=== PATIENT | male | born 1985 | race African-American/Black ===

== ENCOUNTER 2020-10-27 15:31 | Inpatient (IN) | payer SELFPAY ==
[~2020-10-27] VITALS: Ht 188 cm; Wt 158.8 kg
[2020-10-27 15:31] VITALS: BP_SYST 129
[2020-10-27] MEDS ORDERED: fentaNYL CITRATE/PF 100 MCG/2 ML AMP IVP PRN (16:00)
[2020-10-27] MEDS ORDERED: PANTOPRAZOLE SODIUM 40 MG/VIAL (PROTONIX) IVP ONE (16:00)
[2020-10-27] MEDS ORDERED: NACL 0.9% 1,000 ML IV SCH (16:00)
[2020-10-27] MEDS ORDERED: DIPHENHYDRAMINE INJ 50 MG/ML VIAL IVP ONE (16:30)
[2020-10-27] MEDS ORDERED: PANTOPRAZOLE SODIUM 40 MG in NS 50 ML IV ONE (16:30)
[2020-10-27] MEDS ORDERED: PANTOPRAZOLE SODIUM 80 MG in NS 100 ML IV ONE (16:30)
[2020-10-27] MEDS ORDERED: IOHEXOL 350 mgI/mL, 150 ML INFUS..BTL IV ONE (16:58)
[2020-10-27 17:15] LABS: HEMATOCRIT 27.4 % (36-54); HEMOGLOBIN 8.6 g/dL (14.0-18.0); MEAN CORPUSCULAR HEMOGLOBIN 26 pg (27-31); MEAN CORPUSCULAR HGB CONC 31 % (32-36); MEAN CORPUSCULAR VOLUME 83 fL (79.0-98.0); PLATELET COUNT (AUTO) 222 K/uL (130-430); RED BLOOD CELL COUNT(AUTO) 3.32 MIL/uL (4.2-6.2); RED CELL DISTRIBUTION WIDTH 16.9 % (9.0-15.0); WHITE BLOOD COUNT (AUTO) 3.2 K/uL (4.8-10.8)
[2020-10-27 17:26] LABS: PROTHROMBIN TIME 10.1 SECS (9.5-12.5)
[2020-10-27 17:32] LABS: CALCIUM 8.6 mg/dL (8.4-11.0); CREATININE 0.89 mg/dL (0.55-1.30); POTASSIUM 3.9 mmol/L (3.5-5.1)
[2020-10-27 17:48] LABS: ALBUMIN 3.2 g/dL (3.4-4.8); TOTAL BILIRUBIN 0.5 mg/dL (0.0-1.0)
[2020-10-27] MEDS ORDERED: FOLI-43 PO (18:10)
[2020-10-27] MEDS ORDERED: HYD500 PO (18:10)
[2020-10-27] MEDS ORDERED: ASPI-1393 PO (18:10)
[2020-10-27] MEDS ORDERED: INSU100V9 SQ (18:13)
[2020-10-27] MEDS ORDERED: INSU100V SQ (18:13)
[2020-10-27] MEDS ORDERED: VANC250C17 (18:28)
[2020-10-27] MEDS ORDERED: RIVA20TA PO (18:28)
[2020-10-27] MEDS ORDERED: CLOP75TA32 PO ×2 (18:28→21:05)
[2020-10-27] MEDS ORDERED: QUET400T PO (18:28)
[2020-10-27] MEDS ORDERED: MIRT-115 PO (18:28)
[2020-10-27] MEDS ORDERED: HYDR-3927 PO (18:28)
[2020-10-27] MEDS ORDERED: HYDR2TAB4 PO (18:28)
[2020-10-27] MEDS ORDERED: HYDROmorphone 1 INJ. 1 MG/ML CARTRIDGE IVP PRN (19:45)
[2020-10-27] MEDS ORDERED: VANCOMYCIN HCL 1,000 MG in NS 250 ML IV ONE (19:45)
[2020-10-27] MEDS ORDERED: VANCOMYCIN HCL 1000 MG/VIAL IV ONE (20:13)
[2020-10-27] MEDS ORDERED: HYDROmorphone 2 MG/ML VIAL ONE (20:29)
[2020-10-27 21:03] LABS: BASOPHILS % (AUTO) 0.2 % (0.0-2.0); EOSINOPHILS # (AUTO) 0.1 K/uL (0.0-0.4); EOSINOPHILS % (AUTO) 1.3 % (0.0-4.0); HEMATOCRIT 27.1 % (36-54); HEMOGLOBIN 8.6 g/dL (14.0-18.0); LYMPHOCYTES # (AUTO) 1.1 K/uL (1.0-5.5); LYMPHOCYTES % (AUTO) 19.4 % (20.5-51.5); MEAN CORPUSCULAR HEMOGLOBIN 26 pg (27-31); MEAN CORPUSCULAR HGB CONC 32 % (32-36); MEAN CORPUSCULAR VOLUME 82 fL (79.0-98.0); MONOCYTES # (AUTO) 0.4 K/uL (0.0-1.0); MONOCYTES % (AUTO) 7.1 % (1.7-9.3); NEUTROPHILS # (AUTO) 4.1 K/uL (1.8-7.7); PLATELET COUNT (AUTO) 228 K/uL (130-430); RED BLOOD CELL COUNT(AUTO) 3.31 MIL/uL (4.2-6.2); RED CELL DISTRIBUTION WIDTH 16.7 % (9.0-15.0); RETICULOCYTE COUNT 2.5 % (0.5-1.5); WHITE BLOOD COUNT (AUTO) 5.6 K/uL (4.8-10.8)
[2020-10-27 22:00] VITALS: BP_SYST 147
[2020-10-27] MEDS: DIPHENHYDRAMINE INJ 50 MG/ML VIAL IVP PRN (22:34)
[2020-10-27] MEDS: HYDROmorphone 2 MG/ML VIAL IVP PRN (22:42)
[2020-10-27] MEDS: 0.45% NACL 1,000 ML IV SCH (22:48)
[2020-10-27] MEDS: HYDROXYUREA 500 MG CAPSULE (HYDREA) PO SCH (23:20)
[2020-10-27] MEDS: MIRTAZAPINE 15 MG TABLET PO SCH (23:21)
[2020-10-27] MEDS: QUEtiapine FUMARATE 100 MG TABLET PO SCH (23:21)
[2020-10-28 00:34] VITALS: BP_SYST 136
[2020-10-28] MEDS: HYDROmorphone 2 MG/ML VIAL IVP PRN ×11 (00:44→23:07)
[2020-10-28] MEDS: DIPHENHYDRAMINE INJ 50 MG/ML VIAL IVP PRN ×5 (02:41→21:01)
[2020-10-28] MEDS ORDERED: VANCOMYCIN HCL 1 GM/NS PREMIX 250 ML IV SCH ×2 (03:45→09:00)
[2020-10-28] MEDS: 0.45% NACL 1,000 ML IV SCH ×3 (04:05→20:45)
[2020-10-28] MEDS: INSULIN LISPRO SLIDING SCALE 100 UNITS/ML VIAL (humaLOG) SUBCUT PRN ×5 (06:29→21:17)
[2020-10-28 08:06] VITALS: BP_SYST 142
[2020-10-28] MEDS ORDERED: VANCOMYCIN HCL Non-Formulary 250 MG CAPSULE PO SCH (09:00)
[2020-10-28] MEDS ORDERED: PANTOPRAZOLE SODIUM 40 MG/VIAL (PROTONIX) IVP SCH (09:00)
[2020-10-28] MEDS ORDERED: PANTOPRAZOLE SODIUM 40 MG/VIAL (PROTONIX) IVP ONE (09:30)
[2020-10-28] MEDS: HYDROXYUREA 500 MG CAPSULE (HYDREA) PO SCH ×3 (09:41→21:01)
[2020-10-28] MEDS: QUEtiapine FUMARATE 100 MG TABLET PO SCH (09:42)
[2020-10-28] MEDS: VANCOMYCIN HCL 1,750 MG in NS 500 ML IV SCH ×2 (09:43→16:42)
[2020-10-28] MEDS ORDERED: INSULIN Lispro 100 UNITS/ML VIAL (humaLOG) SUBCUT ONE (12:15)
[2020-10-28 12:49] VITALS: BP_SYST 137
[2020-10-28 15:30] VITALS: BP_SYST 126
[2020-10-28 17:55] VITALS: BP_SYST 123
[2020-10-28 17:58] LABS: CREATININE 1.26 mg/dL (0.55-1.30); POTASSIUM 3.8 mmol/L (3.5-5.1)
[2020-10-28] MEDS ORDERED: VANCOMYCIN HCL 1,000 MG in NS 250 ML IV SCH (19:45)
[2020-10-28 20:00] VITALS: BP_SYST 131
[2020-10-28] MEDS: PANTOPRAZOLE SODIUM 40 MG/VIAL (PROTONIX) IVP SCH (21:01)
[2020-10-28] MEDS: MIRTAZAPINE 15 MG TABLET PO SCH (21:01)
[2020-10-29] VITALS: BP_SYST 130
[2020-10-29] MEDS: VANCOMYCIN HCL 1,750 MG in NS 500 ML IV SCH ×2 (00:59→09:13)
[2020-10-29] MEDS: HYDROmorphone 2 MG/ML VIAL IVP PRN ×12 (01:10→23:21)
[2020-10-29] MEDS: DIPHENHYDRAMINE INJ 50 MG/ML VIAL IVP PRN ×6 (01:11→21:14)
[2020-10-29] MEDS: 0.45% NACL 1,000 ML IV SCH ×3 (06:22→21:26)
[2020-10-29 07:20] VITALS: BP_SYST 150
[2020-10-29 08:10] LABS: BASOPHILS % (AUTO) 0.2 % (0.0-2.0); EOSINOPHILS # (AUTO) 0.2 K/uL (0.0-0.4); EOSINOPHILS % (AUTO) 3.8 % (0.0-4.0); HEMATOCRIT 25.7 % (36-54); LYMPHOCYTES # (AUTO) 1.4 K/uL (1.0-5.5); LYMPHOCYTES % (AUTO) 27.6 % (20.5-51.5); MEAN CORPUSCULAR HEMOGLOBIN 26 pg (27-31); MEAN CORPUSCULAR HGB CONC 31 % (32-36); MEAN CORPUSCULAR VOLUME 83 fL (79.0-98.0); MONOCYTES # (AUTO) 0.4 K/uL (0.0-1.0); MONOCYTES % (AUTO) 8.6 % (1.7-9.3); NEUTROPHILS # (AUTO) 2.9 K/uL (1.8-7.7); NEUTROPHILS % (AUTO) 59.8 % (40.0-70.0); PLATELET COUNT (AUTO) 196 K/uL (130-430); RED BLOOD CELL COUNT(AUTO) 3.11 MIL/uL (4.2-6.2); RED CELL DISTRIBUTION WIDTH 16.5 % (9.0-15.0); WHITE BLOOD COUNT (AUTO) 4.9 K/uL (4.8-10.8)
[2020-10-29 08:34] LABS: ALBUMIN 2.7 g/dL (3.4-4.8); CALCIUM 7.9 mg/dL (8.4-11.0); CREATININE 0.81 mg/dL (0.55-1.30); THYROID STIMULATING HORMONE 8.15 uIu/mL (0.36-3.74); TOTAL BILIRUBIN 0.4 mg/dL (0.0-1.0)
[2020-10-29 08:45] LABS: ERYTHROCYTE SEDIMENTATION RATE 17 MM/HR (0-15)
[2020-10-29] MEDS: HYDROXYUREA 500 MG CAPSULE (HYDREA) PO SCH ×3 (09:12→21:03)
[2020-10-29] MEDS: PANTOPRAZOLE SODIUM 40 MG/VIAL (PROTONIX) IVP SCH ×2 (09:12→21:03)
[2020-10-29] MEDS: QUEtiapine FUMARATE 100 MG TABLET PO SCH (09:12)
[2020-10-29] MEDS: INSULIN LISPRO SLIDING SCALE 100 UNITS/ML VIAL (humaLOG) SUBCUT PRN ×3 (11:57→21:12)
[2020-10-29 12:00] VITALS: BP_SYST 124
[2020-10-29 16:00] VITALS: BP_SYST 115
[2020-10-29] MEDS ORDERED: FOLIC ACID 1 MG TABLET PO ONE (16:15)
[2020-10-29] MEDS: VANCOMYCIN HCL 1,500 MG in NS 250 ML IV SCH (17:16)
[2020-10-29 20:00] VITALS: BP_SYST 133
[2020-10-29] MEDS: MIRTAZAPINE 15 MG TABLET PO SCH (21:03)
[2020-10-30 01:09] VITALS: BP_SYST 145
[2020-10-30] MEDS: HYDROmorphone 2 MG/ML VIAL IVP PRN ×10 (01:19→22:02)
[2020-10-30] MEDS: DIPHENHYDRAMINE INJ 50 MG/ML VIAL IVP PRN ×5 (01:20→20:08)
[2020-10-30] MEDS: VANCOMYCIN HCL 1,500 MG in NS 250 ML IV SCH ×3 (01:27→17:04)
[2020-10-30] MEDS: 0.45% NACL 1,000 ML IV SCH ×3 (03:24→20:45)
[2020-10-30] MEDS: INSULIN LISPRO SLIDING SCALE 100 UNITS/ML VIAL (humaLOG) SUBCUT PRN ×4 (05:35→20:44)
[2020-10-30 06:21] LABS: EOSINOPHILS # (AUTO) 0.2 K/uL (0.0-0.4); EOSINOPHILS % (AUTO) 5.4 % (0.0-4.0); HEMATOCRIT 25.8 % (36-54); HEMOGLOBIN 8.1 g/dL (14.0-18.0); LYMPHOCYTES # (AUTO) 1.2 K/uL (1.0-5.5); LYMPHOCYTES % (AUTO) 36.3 % (20.5-51.5); MEAN CORPUSCULAR HEMOGLOBIN 26 pg (27-31); MEAN CORPUSCULAR HGB CONC 31 % (32-36); MEAN CORPUSCULAR VOLUME 82 fL (79.0-98.0); MONOCYTES # (AUTO) 0.3 K/uL (0.0-1.0); MONOCYTES % (AUTO) 7.9 % (1.7-9.3); NEUTROPHILS # (AUTO) 1.7 K/uL (1.8-7.7); NEUTROPHILS % (AUTO) 50.4 % (40.0-70.0); PLATELET COUNT (AUTO) 191 K/uL (130-430); RED BLOOD CELL COUNT(AUTO) 3.13 MIL/uL (4.2-6.2); RED CELL DISTRIBUTION WIDTH 16.5 % (9.0-15.0); WHITE BLOOD COUNT (AUTO) 3.3 K/uL (4.8-10.8)
[2020-10-30 07:01] LABS: PROTHROMBIN TIME 10.3 SECS (9.5-12.5)
[2020-10-30 07:41] LABS: ALBUMIN 2.7 g/dL (3.4-4.8); CALCIUM 8.1 mg/dL (8.4-11.0); CREATININE 0.81 mg/dL (0.55-1.30); TOTAL BILIRUBIN 0.4 mg/dL (0.0-1.0)
[2020-10-30] MEDS ORDERED: fentaNYL CITRATE/PF 100 MCG/2 ML AMP ONE (07:41)
[2020-10-30] MEDS ORDERED: BENZOCAINE 20% 0.5mL UD SPRAY MM ONE (07:41)
[2020-10-30] MEDS ORDERED: SIMETHICONE 40 MG/0.6 ML ML ONE (07:41)
[2020-10-30] MEDS ORDERED: MIDAZOLAM HCL 5 MG/5 ML VIAL ONE (07:42)
[2020-10-30 08:00] VITALS: BP_SYST 148
[2020-10-30] MEDS: QUEtiapine FUMARATE 100 MG TABLET PO SCH (09:00)
[2020-10-30] MEDS: HYDROXYUREA 500 MG CAPSULE (HYDREA) PO SCH ×3 (09:00→20:38)
[2020-10-30] MEDS: FOLIC ACID 1 MG TABLET PO SCH (09:00)
[2020-10-30] MEDS: PANTOPRAZOLE SODIUM 40 MG/VIAL (PROTONIX) IVP SCH ×2 (09:33→20:38)
[2020-10-30 12:16] VITALS: BP_SYST 146
[2020-10-30 12:29] LABS: BILIRUBIN,URINE NEGATIVE (NEGATIVE); BLOOD, URINE NEGATIVE (NEGATIVE); CLARITY/URINE CLEAR (CLEAR); COLOR,URINE YELLOW (YELLOW); GLUCOSE,URINE 3+ (NEGATIVE); KETONES,URINE NEGATIVE (NEGATIVE); LEUKOCYTE ESTERASE ,URINE NEGATIVE (NEGATIVE); NITRITE, URINE NEGATIVE (NEGATIVE); PROTEIN URINE NEGATIVE (NEGATIVE); UROBILINOGEN,URINE 0.2 (0.2-1.0)
[2020-10-30] MEDS ORDERED: fentaNYL CITRATE/PF 100 MCG/2 ML AMP IVP PRN ×2 (15:00)
[2020-10-30 16:03] VITALS: BP_SYST 146
[2020-10-30 16:24] VITALS: BP_SYST 127
[2020-10-30] MEDS: INSULIN Lispro 100 UNITS/ML VIAL (humaLOG) SUBCUT SCH (17:07)
[2020-10-30] MEDS: MIRTAZAPINE 15 MG TABLET PO SCH (20:39)
[2020-10-30] MEDS: INSULIN GLARGINE 100 UNITS/ML 10 ML VIAL SUBCUT SCH (20:45)
[2020-10-30 21:45] VITALS: BP_SYST 144
[2020-10-31] VITALS: BP_SYST 122
[2020-10-31] MEDS: VANCOMYCIN HCL 1,500 MG in NS 250 ML IV SCH ×3 (00:03→18:26)
[2020-10-31] MEDS: DIPHENHYDRAMINE INJ 50 MG/ML VIAL IVP PRN ×6 (00:04→22:02)
[2020-10-31] MEDS: HYDROmorphone 2 MG/ML VIAL IVP PRN ×11 (00:04→22:03)
[2020-10-31] MEDS: 0.45% NACL 1,000 ML IV SCH ×3 (06:30→23:45)
[2020-10-31] MEDS: INSULIN Lispro 100 UNITS/ML VIAL (humaLOG) SUBCUT SCH ×3 (06:34→17:33)
[2020-10-31] MEDS: INSULIN LISPRO SLIDING SCALE 100 UNITS/ML VIAL (humaLOG) SUBCUT PRN ×3 (06:35→17:37)
[2020-10-31 08:00] VITALS: BP_SYST 138
[2020-10-31 08:08] LABS: TOTAL IRON BIND. CAPACITY 420 ug/dL (250-450)
[2020-10-31] MEDS: PANTOPRAZOLE SODIUM 40 MG/VIAL (PROTONIX) IVP SCH ×2 (08:43→20:52)
[2020-10-31] MEDS: FOLIC ACID 1 MG TABLET PO SCH (08:44)
[2020-10-31] MEDS: HYDROXYUREA 500 MG CAPSULE (HYDREA) PO SCH ×3 (08:44→20:52)
[2020-10-31] MEDS: QUEtiapine FUMARATE 100 MG TABLET PO SCH ×2 (08:44→21:29)
[2020-10-31] MEDS ORDERED: ACETAMINOPHEN 650 MG/20.3 ML UDC GT PRN (09:30)
[2020-10-31 12:47] VITALS: BP_SYST 145
[2020-10-31] MEDS ORDERED: fentaNYL CITRATE/PF 100 MCG/2 ML AMP IVP ONE (15:00)
[2020-10-31] MEDS ORDERED: NS 50 ML BAG IV ONE (15:00)
[2020-10-31] MEDS ORDERED: MIDAZOLAM HCL 5 MG/5 ML VIAL IVP ONE (15:00)
[2020-10-31] MEDS ORDERED: PROPOFOL 200MG/ 20ML VIAL (DIPRIVAN) IV ONE (15:00)
[2020-10-31 16:48] VITALS: BP_SYST 126
[2020-10-31] MEDS: RIVAROXABAN 10 MG TABLET PO SCH (18:23)
[2020-10-31 19:50] VITALS: BP_SYST 128
[2020-10-31] MEDS: MIRTAZAPINE 15 MG TABLET PO SCH (20:52)
[2020-10-31] MEDS: INSULIN GLARGINE 100 UNITS/ML 10 ML VIAL SUBCUT SCH (20:58)
[2020-11-01] MEDS: HYDROmorphone 2 MG/ML VIAL IVP PRN ×11 (00:15→23:22)
[2020-11-01] MEDS: VANCOMYCIN HCL 1,500 MG in NS 250 ML IV SCH ×3 (00:40→16:55)
[2020-11-01 01:04] VITALS: BP_SYST 123
[2020-11-01] MEDS: DIPHENHYDRAMINE INJ 50 MG/ML VIAL IVP PRN ×5 (03:15→21:15)
[2020-11-01] MEDS: INSULIN Lispro 100 UNITS/ML VIAL (humaLOG) SUBCUT SCH ×3 (06:32→17:16)
[2020-11-01 06:46] LABS: BASOPHILS % (AUTO) 0.2 % (0.0-2.0); EOSINOPHILS # (AUTO) 0.3 K/uL (0.0-0.4); EOSINOPHILS % (AUTO) 6.1 % (0.0-4.0); HEMATOCRIT 26.3 % (36-54); HEMOGLOBIN 8.2 g/dL (14.0-18.0); LYMPHOCYTES # (AUTO) 1.8 K/uL (1.0-5.5); LYMPHOCYTES % (AUTO) 34.3 % (20.5-51.5); MEAN CORPUSCULAR HEMOGLOBIN 26 pg (27-31); MEAN CORPUSCULAR HGB CONC 31 % (32-36); MEAN CORPUSCULAR VOLUME 82 fL (79.0-98.0); MONOCYTES # (AUTO) 0.5 K/uL (0.0-1.0); MONOCYTES % (AUTO) 9.6 % (1.7-9.3); NEUTROPHILS # (AUTO) 2.6 K/uL (1.8-7.7); NEUTROPHILS % (AUTO) 49.8 % (40.0-70.0); PLATELET COUNT (AUTO) 202 K/uL (130-430); RED CELL DISTRIBUTION WIDTH 16.7 % (9.0-15.0); WHITE BLOOD COUNT (AUTO) 5.2 K/uL (4.8-10.8)
[2020-11-01 07:06] LABS: FOLATE (FOLIC ACID) 17.9 ng/mL (>3.0)
[2020-11-01 07:26] LABS: ALBUMIN 2.7 g/dL (3.4-4.8); CALCIUM 7.9 mg/dL (8.4-11.0); CREATININE 0.86 mg/dL (0.55-1.30); TOTAL BILIRUBIN 0.2 mg/dL (0.0-1.0)
[2020-11-01 08:00] VITALS: BP_SYST 121
[2020-11-01] MEDS: 0.45% NACL 1,000 ML IV SCH ×2 (08:21→16:54)
[2020-11-01] MEDS: FOLIC ACID 1 MG TABLET PO SCH (08:23)
[2020-11-01] MEDS: QUEtiapine FUMARATE 100 MG TABLET PO SCH ×2 (08:23→21:14)
[2020-11-01] MEDS: HYDROXYUREA 500 MG CAPSULE (HYDREA) PO SCH ×3 (08:23→21:00)
[2020-11-01] MEDS: PANTOPRAZOLE SODIUM 40 MG/VIAL (PROTONIX) IVP SCH ×2 (08:23→21:00)
[2020-11-01] MEDS: INSULIN LISPRO SLIDING SCALE 100 UNITS/ML VIAL (humaLOG) SUBCUT PRN ×2 (11:43→17:17)
[2020-11-01 12:11] VITALS: BP_SYST 126
[2020-11-01 16:14] VITALS: BP_SYST 113
[2020-11-01] MEDS: RIVAROXABAN 10 MG TABLET PO SCH (18:02)
[2020-11-01] MEDS: SOD FERRIC GLUC COMPLEX/SUC 125 MG in NS 100 ML IV SCH (19:06)
[2020-11-01] MEDS: INSULIN GLARGINE 100 UNITS/ML 10 ML VIAL SUBCUT SCH (21:00)
[2020-11-01] MEDS: MIRTAZAPINE 15 MG TABLET PO SCH (21:14)
[2020-11-01 21:27] VITALS: BP_SYST 123
[2020-11-02] MEDS: DIPHENHYDRAMINE INJ 50 MG/ML VIAL IVP PRN ×6 (01:32→23:11)
[2020-11-02] MEDS: HYDROmorphone 2 MG/ML VIAL IVP PRN ×11 (01:33→23:11)
[2020-11-02] MEDS: 0.45% NACL 1,000 ML IV SCH (01:36)
[2020-11-02] MEDS: VANCOMYCIN HCL 1,500 MG in NS 250 ML IV SCH ×3 (01:37→17:55)
[2020-11-02 01:40] VITALS: BP_SYST 138
[2020-11-02] MEDS: INSULIN LISPRO SLIDING SCALE 100 UNITS/ML VIAL (humaLOG) SUBCUT PRN ×4 (06:50→21:23)
[2020-11-02] MEDS: INSULIN Lispro 100 UNITS/ML VIAL (humaLOG) SUBCUT SCH ×3 (07:01→18:00)
[2020-11-02 07:24] LABS: BASOPHILS % (AUTO) 0.5 % (0.0-2.0); EOSINOPHILS # (AUTO) 0.3 K/uL (0.0-0.4); EOSINOPHILS % (AUTO) 4.4 % (0.0-4.0); HEMATOCRIT 26.1 % (36-54); HEMOGLOBIN 8.2 g/dL (14.0-18.0); LYMPHOCYTES # (AUTO) 1.5 K/uL (1.0-5.5); LYMPHOCYTES % (AUTO) 22.5 % (20.5-51.5); MEAN CORPUSCULAR HEMOGLOBIN 26 pg (27-31); MEAN CORPUSCULAR HGB CONC 31 % (32-36); MEAN CORPUSCULAR VOLUME 83 fL (79.0-98.0); MONOCYTES # (AUTO) 0.5 K/uL (0.0-1.0); MONOCYTES % (AUTO) 8.3 % (1.7-9.3); NEUTROPHILS # (AUTO) 4.2 K/uL (1.8-7.7); NEUTROPHILS % (AUTO) 64.3 % (40.0-70.0); PLATELET COUNT (AUTO) 177 K/uL (130-430); RED BLOOD CELL COUNT(AUTO) 3.16 MIL/uL (4.2-6.2); RED CELL DISTRIBUTION WIDTH 16.9 % (9.0-15.0); WHITE BLOOD COUNT (AUTO) 6.6 K/uL (4.8-10.8)
[2020-11-02] MEDS: PANTOPRAZOLE SODIUM 40 MG/VIAL (PROTONIX) IVP SCH (08:48)
[2020-11-02] MEDS: QUEtiapine FUMARATE 100 MG TABLET PO SCH ×2 (08:52→21:12)
[2020-11-02] MEDS: HYDROXYUREA 500 MG CAPSULE (HYDREA) PO SCH ×3 (08:52→21:13)
[2020-11-02] MEDS: FOLIC ACID 1 MG TABLET PO SCH (08:53)
[2020-11-02 12:00] VITALS: BP_SYST 118
[2020-11-02 12:42] VITALS: BP_SYST 138
[2020-11-02] MEDS: SOD FERRIC GLUC COMPLEX/SUC 125 MG in NS 100 ML IV SCH (17:50)
[2020-11-02 18:34] VITALS: BP_SYST 134
[2020-11-02 21:00] VITALS: BP_SYST 135
[2020-11-02] MEDS: PANTOPRAZOLE SODIUM 40 MG TAB PO SCH (21:12)
[2020-11-02] MEDS: MIRTAZAPINE 15 MG TABLET PO SCH (21:13)
[2020-11-02] MEDS: INSULIN GLARGINE 100 UNITS/ML 10 ML VIAL SUBCUT SCH (21:23)
[2020-11-03 00:46] VITALS: BP_SYST 122
[2020-11-03] MEDS: VANCOMYCIN HCL 1,500 MG in NS 250 ML IV SCH ×3 (01:08→16:02)
[2020-11-03] MEDS: HYDROmorphone 2 MG/ML VIAL IVP PRN ×11 (01:09→22:59)
[2020-11-03] MEDS: DIPHENHYDRAMINE INJ 50 MG/ML VIAL IVP PRN ×5 (03:10→20:49)
[2020-11-03] MEDS: INSULIN Lispro 100 UNITS/ML VIAL (humaLOG) SUBCUT SCH ×3 (06:16→16:09)
[2020-11-03 07:50] VITALS: BP_SYST 139
[2020-11-03] MEDS: QUEtiapine FUMARATE 100 MG TABLET PO SCH ×3 (09:00→20:51)
[2020-11-03] MEDS: HYDROXYUREA 500 MG CAPSULE (HYDREA) PO SCH ×3 (09:00→20:52)
[2020-11-03] MEDS: FOLIC ACID 1 MG TABLET PO SCH (09:00)
[2020-11-03] MEDS: PANTOPRAZOLE SODIUM 40 MG TAB PO SCH ×2 (09:00→20:52)
[2020-11-03] MEDS: INSULIN LISPRO SLIDING SCALE 100 UNITS/ML VIAL (humaLOG) SUBCUT PRN ×3 (11:24→21:03)
[2020-11-03 11:46] VITALS: BP_SYST 133
[2020-11-03 16:00] VITALS: BP_SYST 115
[2020-11-03] MEDS: SOD FERRIC GLUC COMPLEX/SUC 125 MG in NS 100 ML IV SCH (18:03)
[2020-11-03] MEDS: MIRTAZAPINE 15 MG TABLET PO SCH (20:52)
[2020-11-03] MEDS: INSULIN GLARGINE 100 UNITS/ML 10 ML VIAL SUBCUT SCH (21:01)
[2020-11-04 00:32] VITALS: BP_SYST 131
[2020-11-04] MEDS: VANCOMYCIN HCL 1,500 MG in NS 250 ML IV SCH ×3 (00:48→16:03)
[2020-11-04] MEDS: DIPHENHYDRAMINE INJ 50 MG/ML VIAL IVP PRN ×6 (00:48→22:15)
[2020-11-04] MEDS: HYDROmorphone 2 MG/ML VIAL IVP PRN ×11 (00:59→22:18)
[2020-11-04] MEDS: INSULIN Lispro 100 UNITS/ML VIAL (humaLOG) SUBCUT SCH ×3 (06:59→16:08)
[2020-11-04] MEDS: INSULIN LISPRO SLIDING SCALE 100 UNITS/ML VIAL (humaLOG) SUBCUT PRN ×4 (07:00→20:28)
[2020-11-04 09:00] VITALS: BP_SYST 156
[2020-11-04] MEDS: PANTOPRAZOLE SODIUM 40 MG TAB PO SCH ×2 (09:19→20:13)
[2020-11-04] MEDS: FOLIC ACID 1 MG TABLET PO SCH (09:19)
[2020-11-04] MEDS: HYDROXYUREA 500 MG CAPSULE (HYDREA) PO SCH ×3 (09:19→20:13)
[2020-11-04] MEDS: QUEtiapine FUMARATE 100 MG TABLET PO SCH ×2 (09:20→20:12)
[2020-11-04 11:35] VITALS: BP_SYST 127
[2020-11-04 16:00] VITALS: BP_SYST 125
[2020-11-04] MEDS ORDERED: ALTEPLASE 2 MG VIAL MC ONE (16:00)
[2020-11-04] MEDS: RIVAROXABAN 10 MG TABLET PO SCH (18:01)
[2020-11-04] MEDS: SOD FERRIC GLUC COMPLEX/SUC 125 MG in NS 100 ML IV SCH (18:02)
[2020-11-04 20:00] VITALS: BP_SYST 112
[2020-11-04] MEDS: MIRTAZAPINE 15 MG TABLET PO SCH (20:13)
[2020-11-04] MEDS: INSULIN GLARGINE 100 UNITS/ML 10 ML VIAL SUBCUT SCH (20:23)
[2020-11-05] VITALS (7 sets, daily range): BP systolic 113–139
[2020-11-05] MEDS: HYDROmorphone 2 MG/ML VIAL IVP PRN ×12 (00:17→23:53)
[2020-11-05] MEDS: VANCOMYCIN HCL 1,500 MG in NS 250 ML IV SCH ×3 (00:17→17:41)
[2020-11-05] MEDS: DIPHENHYDRAMINE INJ 50 MG/ML VIAL IVP PRN ×6 (02:17→23:48)
[2020-11-05] MEDS: INSULIN Lispro 100 UNITS/ML VIAL (humaLOG) SUBCUT SCH ×3 (06:24→17:43)
[2020-11-05] MEDS: INSULIN LISPRO SLIDING SCALE 100 UNITS/ML VIAL (humaLOG) SUBCUT PRN ×4 (06:25→20:32)
[2020-11-05] MEDS: QUEtiapine FUMARATE 100 MG TABLET PO SCH ×2 (08:29→20:23)
[2020-11-05] MEDS: PANTOPRAZOLE SODIUM 40 MG TAB PO SCH ×2 (08:30→20:23)
[2020-11-05] MEDS: FOLIC ACID 1 MG TABLET PO SCH (08:30)
[2020-11-05] MEDS: HYDROXYUREA 500 MG CAPSULE (HYDREA) PO SCH ×3 (08:30→20:22)
[2020-11-05] MEDS: SOD FERRIC GLUC COMPLEX/SUC 125 MG in NS 100 ML IV SCH (18:58)
[2020-11-05] MEDS: RIVAROXABAN 10 MG TABLET PO SCH (19:01)
[2020-11-05] MEDS: MIRTAZAPINE 15 MG TABLET PO SCH (20:22)
[2020-11-05] MEDS: INSULIN GLARGINE 100 UNITS/ML 10 ML VIAL SUBCUT SCH (20:32)
[2020-11-05] MEDS ORDERED: INSULIN GLARGINE 100 UNITS/ML 10 ML VIAL SUBCUT SCH (21:00)
[2020-11-06 00:11] VITALS: BP_SYST 119
[2020-11-06] MEDS: VANCOMYCIN HCL 1,500 MG in NS 250 ML IV SCH ×3 (01:47→17:35)
[2020-11-06] MEDS: HYDROmorphone 2 MG/ML VIAL IVP PRN ×11 (01:52→22:51)
[2020-11-06] MEDS: DIPHENHYDRAMINE INJ 50 MG/ML VIAL IVP PRN ×5 (03:55→20:27)
[2020-11-06] MEDS ORDERED: ALBUTEROL MDI INHALATION 8 GM INH INH PRN (04:45)
[2020-11-06] MEDS ORDERED: ALBUTEROL SULFATE 0.083% 2.5 MG/3 ML VIAL.NEB INH ONE (04:57)
[2020-11-06] MEDS: INSULIN LISPRO SLIDING SCALE 100 UNITS/ML VIAL (humaLOG) SUBCUT PRN ×4 (05:58→20:24)
[2020-11-06] MEDS: INSULIN Lispro 100 UNITS/ML VIAL (humaLOG) SUBCUT SCH ×3 (05:59→17:29)
[2020-11-06 08:00] VITALS: BP_SYST 110
[2020-11-06] MEDS: HYDROXYUREA 500 MG CAPSULE (HYDREA) PO SCH ×3 (08:40→20:28)
[2020-11-06] MEDS: INSULIN GLARGINE 100 UNITS/ML 10 ML VIAL SUBCUT SCH ×2 (08:43→20:25)
[2020-11-06] MEDS: QUEtiapine FUMARATE 100 MG TABLET PO SCH ×2 (08:51→20:28)
[2020-11-06] MEDS: FOLIC ACID 1 MG TABLET PO SCH (08:51)
[2020-11-06] MEDS: PANTOPRAZOLE SODIUM 40 MG TAB PO SCH ×2 (08:51→20:27)
[2020-11-06] MEDS: ALBUTEROL SULFATE 0.083% 2.5 MG/3 ML VIAL.NEB INH PRN ×2 (10:13→17:47)
[2020-11-06 16:10] VITALS: BP_SYST 114
[2020-11-06] MEDS: RIVAROXABAN 10 MG TABLET PO SCH (18:19)
[2020-11-06] MEDS: SOD FERRIC GLUC COMPLEX/SUC 125 MG in NS 100 ML IV SCH (18:19)
[2020-11-06 20:00] VITALS: BP_SYST 118
[2020-11-06] MEDS: MIRTAZAPINE 15 MG TABLET PO SCH (20:28)
[2020-11-07 00:16] VITALS: BP_SYST 159
[2020-11-07] MEDS: DIPHENHYDRAMINE INJ 50 MG/ML VIAL IVP PRN ×6 (00:54→22:31)
[2020-11-07] MEDS: HYDROmorphone 2 MG/ML VIAL IVP PRN ×11 (00:56→22:31)
[2020-11-07] MEDS: VANCOMYCIN HCL 1,500 MG in NS 250 ML IV SCH ×2 (01:04→08:16)
[2020-11-07] MEDS: INSULIN Lispro 100 UNITS/ML VIAL (humaLOG) SUBCUT SCH ×3 (06:10→16:40)
[2020-11-07] MEDS: INSULIN LISPRO SLIDING SCALE 100 UNITS/ML VIAL (humaLOG) SUBCUT PRN ×4 (06:12→20:53)
[2020-11-07 08:09] VITALS: BP_SYST 123
[2020-11-07] MEDS: INSULIN GLARGINE 100 UNITS/ML 10 ML VIAL SUBCUT SCH ×2 (08:24→20:51)
[2020-11-07] MEDS: ALBUTEROL SULFATE 0.083% 2.5 MG/3 ML VIAL.NEB INH PRN ×3 (08:29→20:50)
[2020-11-07] MEDS: HYDROXYUREA 500 MG CAPSULE (HYDREA) PO SCH ×3 (08:58→20:38)
[2020-11-07] MEDS: PANTOPRAZOLE SODIUM 40 MG TAB PO SCH ×2 (08:58→20:38)
[2020-11-07] MEDS: FOLIC ACID 1 MG TABLET PO SCH (08:58)
[2020-11-07] MEDS: QUEtiapine FUMARATE 100 MG TABLET PO SCH ×2 (08:59→20:39)
[2020-11-07 11:26] VITALS: BP_SYST 131
[2020-11-07] MEDS: DAPTOmycin 1,000 MG in NS 50 ML IV SCH (12:19)
[2020-11-07] MEDS ORDERED: LIDOCAINE 1% 10 MG/ML, 20 ML MDV INJ ONE (13:30)
[2020-11-07 14:24] LABS: BASOPHILS % (AUTO) 0.3 % (0.0-2.0); EOSINOPHILS # (AUTO) 0.4 K/uL (0.0-0.4); EOSINOPHILS % (AUTO) 6.5 % (0.0-4.0); HEMATOCRIT 27.8 % (36-54); HEMOGLOBIN 8.7 g/dL (14.0-18.0); LYMPHOCYTES # (AUTO) 1.6 K/uL (1.0-5.5); LYMPHOCYTES % (AUTO) 26.1 % (20.5-51.5); MEAN CORPUSCULAR HEMOGLOBIN 27 pg (27-31); MEAN CORPUSCULAR HGB CONC 31 % (32-36); MEAN CORPUSCULAR VOLUME 85 fL (79.0-98.0); MONOCYTES # (AUTO) 0.4 K/uL (0.0-1.0); MONOCYTES % (AUTO) 7.2 % (1.7-9.3); NEUTROPHILS # (AUTO) 3.6 K/uL (1.8-7.7); NEUTROPHILS % (AUTO) 59.9 % (40.0-70.0); PLATELET COUNT (AUTO) 160 K/uL (130-430); RED BLOOD CELL COUNT(AUTO) 3.27 MIL/uL (4.2-6.2); RED CELL DISTRIBUTION WIDTH 17.7 % (9.0-15.0)
[2020-11-07 14:37] LABS: CALCIUM 8.4 mg/dL (8.4-11.0); CREATININE 1.01 mg/dL (0.55-1.30); POTASSIUM 3.7 mmol/L (3.5-5.1)
[2020-11-07 17:53] LABS: CKMB RELATIVE INDEX 0.5 (0.0-2.9); CREATINE KINASE MB 3.3 ng/mL (0-3.6)
[2020-11-07] MEDS: RIVAROXABAN 10 MG TABLET PO SCH (18:23)
[2020-11-07] MEDS: SOD FERRIC GLUC COMPLEX/SUC 125 MG in NS 100 ML IV SCH (18:24)
[2020-11-07 20:00] VITALS: BP_SYST 138
[2020-11-07] MEDS: MIRTAZAPINE 15 MG TABLET PO SCH (20:39)
[2020-11-08] VITALS: BP_SYST 146
[2020-11-08] MEDS: HYDROmorphone 2 MG/ML VIAL IVP PRN ×11 (01:16→22:06)
[2020-11-08] MEDS: DIPHENHYDRAMINE INJ 50 MG/ML VIAL IVP PRN ×5 (03:24→20:08)
[2020-11-08] MEDS: INSULIN Lispro 100 UNITS/ML VIAL (humaLOG) SUBCUT SCH ×3 (07:00→12:06)
[2020-11-08 08:00] VITALS: BP_SYST 135
[2020-11-08] MEDS: INSULIN GLARGINE 100 UNITS/ML 10 ML VIAL SUBCUT SCH ×2 (09:53→20:24)
[2020-11-08] MEDS: FOLIC ACID 1 MG TABLET PO SCH (09:55)
[2020-11-08] MEDS: QUEtiapine FUMARATE 100 MG TABLET PO SCH ×2 (09:55→20:15)
[2020-11-08] MEDS: HYDROXYUREA 500 MG CAPSULE (HYDREA) PO SCH ×3 (09:55→20:18)
[2020-11-08] MEDS: PANTOPRAZOLE SODIUM 40 MG TAB PO SCH ×2 (09:55→20:18)
[2020-11-08 11:35] VITALS: BP_SYST 140
[2020-11-08] MEDS: INSULIN LISPRO SLIDING SCALE 100 UNITS/ML VIAL (humaLOG) SUBCUT PRN ×2 (12:08→17:33)
[2020-11-08] MEDS: DAPTOmycin 1,000 MG in NS 50 ML IV SCH (12:29)
[2020-11-08 12:38] VITALS: BP_SYST 140
[2020-11-08] MEDS: RIVAROXABAN 10 MG TABLET PO SCH (17:34)
[2020-11-08] MEDS: SOD FERRIC GLUC COMPLEX/SUC 125 MG in NS 100 ML IV SCH (17:36)
[2020-11-08 20:05] VITALS: BP_SYST 148
[2020-11-08] MEDS: MIRTAZAPINE 15 MG TABLET PO SCH (20:17)
[2020-11-08] MEDS: ALBUTEROL SULFATE 0.083% 2.5 MG/3 ML VIAL.NEB INH PRN (21:22)
[2020-11-09] MEDS: HYDROmorphone 2 MG/ML VIAL IVP PRN ×7 (00:08→12:35)
[2020-11-09] MEDS: DIPHENHYDRAMINE INJ 50 MG/ML VIAL IVP PRN ×4 (00:09→12:34)
[2020-11-09] MEDS: INSULIN LISPRO SLIDING SCALE 100 UNITS/ML VIAL (humaLOG) SUBCUT PRN ×3 (00:24→12:08)
[2020-11-09 00:41] VITALS: BP_SYST 146
[2020-11-09 08:00] VITALS: BP_SYST 146
[2020-11-09] MEDS: QUEtiapine FUMARATE 100 MG TABLET PO SCH (08:13)
[2020-11-09] MEDS: HYDROXYUREA 500 MG CAPSULE (HYDREA) PO SCH (08:13)
[2020-11-09] MEDS: PANTOPRAZOLE SODIUM 40 MG TAB PO SCH (08:14)
[2020-11-09] MEDS: FOLIC ACID 1 MG TABLET PO SCH (08:14)
[2020-11-09] MEDS: INSULIN GLARGINE 100 UNITS/ML 10 ML VIAL SUBCUT SCH (08:18)
[2020-11-09 12:00] VITALS: BP_SYST 132
[2020-11-09] MEDS: DAPTOmycin 1,000 MG in NS 50 ML IV SCH (12:13)
[2020-11-09 12:47] VITALS: BP_SYST 132
[2020-11-09] MEDS: ALBUTEROL SULFATE 0.083% 2.5 MG/3 ML VIAL.NEB INH PRN (13:01)
== END 2020-11-09 13:20 | disposition home or self-care (01) | DRG 559 ==
LOC: SED 15:31 → STU 19:36
PROVIDERS: ADMIT Internal Medicine; ATTEND Internal Medicine
PROC: 0DB78ZX Excision of Stomach, Pylorus, Via Natural or Artificial Opening Endoscopic, Diagnostic (ICD-10-PCS; principal; 2020-10-30 14:30)
DX: T84.51XA Infection and inflammatory reaction due to internal right hip prosthesis, initial encounter (principal); D57.00 Hb-SS disease with crisis, unspecified; K29.01 Acute gastritis with bleeding; Z68.41 Body mass index [BMI] 40.0-44.9, adult; R78.81 Bacteremia; I69.351 Hemiplegia and hemiparesis following cerebral infarction affecting right dominant side; Z96.641 Presence of right artificial hip joint; F03.90 Unspecified dementia, unspecified severity, without behavioral disturbance, psychotic disturbance, mood disturbance, and anxiety; F31.9 Bipolar disorder, unspecified; E66.01 Morbid (severe) obesity due to excess calories; B95.62 Methicillin resistant Staphylococcus aureus infection as the cause of diseases classified elsewhere; Y83.1 Surgical operation with implant of artificial internal device as the cause of abnormal reaction of the patient, or of later complication, without mention of misadventure at the time of the procedure; F41.9 Anxiety disorder, unspecified; I25.10 Atherosclerotic heart disease of native coronary artery without angina pectoris; E10.9 Type 1 diabetes mellitus without complications; B96.81 Helicobacter pylori [H. pylori] as the cause of diseases classified elsewhere; Z20.822 Contact with and (suspected) exposure to COVID-19; Z88.5 Allergy status to narcotic agent; Z88.8 Allergy status to other drugs, medicaments and biological substances; I25.2 Old myocardial infarction; Z79.01 Long term (current) use of anticoagulants; Z79.4 Long term (current) use of insulin; Z79.82 Long term (current) use of aspirin; Z86.711 Personal history of pulmonary embolism; Z86.718 Personal history of other venous thrombosis and embolism; Z87.11 Personal history of peptic ulcer disease; Z90.81 Acquired absence of spleen; Z95.5 Presence of coronary angioplasty implant and graft; Z99.3 Dependence on wheelchair; Y92.89 Other specified places as the place of occurrence of the external cause
CPT/HCPCS: 36415; 43239; 71045; 71275; 76376; 80048; 80053; 80202; 81003; 82550; 82553; 82607; 82728; 82746; 82962; 83021; 83051; 83540; 83550; 83880; 84443; 84484; 85014; 85025; 85044; 85048; 85049-TC; 85610-TC; 85651-TC; 85660; 85730-TC; 86886; 86900; 86901; 87040-TC; 87081; 87186-TC; 88305; 88312; 88313; 93005; 93306; 94640; 94760; 96361; 96365; 96375; C1751; C9113; G0378; J0878; J1170; J1200; J1815; J2001; J2250; J2704; J2916; J2997; J3010; J3370; J7030; J7040; J7050; J7613; Q9967